=== PATIENT | female | born 1960 | race Caucasian/White ===

== ENCOUNTER 2016-11-09 06:50 | Day surgery (SDC) | payer OTHER, SELFPAY ==
[2016-11-06 11:02] LABS: BASOPHILS 0.2 %; BASOPHILS ABSOLUTE 0.02 10/3/uL (0.0-0.16); EOSINOPHILS 0.9 %; EOSINOPHILS ABSOLUTE 0.08 10/3/uL (0.0-0.53); HEMATOCRIT 39.9 % (36.0-48.0); HEMOGLOBIN 13.8 g/dL (12.0-16.0); IMMATURE GRANULOCYTES 0.2 %; IMMATURE GRANULOCYTES ABSOLUTE 0.02 10/3/uL (0.0-0.11); LYMPHOCYTES 23.6 %; MEAN CORPUS HGB CONC 34.6 g/dL (32.0-36.0); MEAN CORPUSCULAR HEMOGLOB 29.1 pg (26.0-34.0); MEAN PLATELET VOLUME 10.2 fL (9.2-13.0); MONOCYTES 6.8 %; MONOCYTES ABSOLUTE 0.58 10/3/uL (0.21-1.20); NEUTROPHILS 68.3 %; NEUTROPHILS ABSOLUTE 5.77 10/3/uL (2.02-8.40); RBC DISTRIBUTION WIDTH 12.6 % (12.0-16.0); RED CELL COUNT 4.75 10/6/uL (4.0-5.6); WHITE BLOOD CELLS 8.5 10/3/uL (4.5-10.5)
[2016-11-06 11:04] LABS: MANUAL DIFF NO %; PLATELET COUNT 264 10/3/uL (150-400)
[2016-11-06 11:16] LABS: A/G RATIO 1.1 (0.7-1.9); ALBUMIN 3.8 G/DL (3.5-5.0); ALKALINE PHOSPHATASE 111 U/L (45-117); BUN (BLOOD UREA NITROGEN) 8 MG/DL (6-23); CALCIUM, SERUM 9.2 MG/DL (8.5-10.4); CHLORIDE, SERUM 100 MMOL/L (96-112); CO2 (CARBON DIOXIDE) 33 MMOL/L (24-34); CREATININE 0.57 MG/DL (0.55-1.02); GFR AFRICAN AMERICAN 120 ML/MIN (>=60); GFR NON AFRICAN AMERICAN 104 ML/MIN (>=60); GLOBULIN 3.5 G/DL (2.5-4.1); GLUCOSE, SERUM 82 MG/DL (60-99); POTASSIUM, SERUM 4.1 MMOL/L (3.5-5.3); SGOT(AST) 23 U/L (5-40); SGPT(ALT) 25 U/L (5-65); SODIUM, SERUM 139 MMOL/L (135-148); TOTAL BILIRUBIN 0.5 MG/DL (0-1.2); TOTAL PROTEIN 7.3 G/DL (6.0-8.5)
--- NOTE | ~2016-11-09 | OP ---
Record Of Operation [facility] [address] [place]. [address] NAME: JAIRO DE LEON : 60 STATUS : REG [facility] [place] PAT#: [id number] AGE: 56 ADM/REG DATE : 11/09/16 MR#: [id number] REPORT SERV DATE: 11/09/16 DICTATED BY: SAMMY HURLEY JR. DATE: 11/09/16 REPORT STATUS : Draft TRANSCRIBED BY: MODL DATE: 11/09/16 DATE OF PROCEDURE: REASON FOR SURGERY: This 56-year-old patient, presents with an area of in situ malignancy on the depths of the right breast. Stereotactic biopsy had been performed and ultrasound localization of the biopsy site has been performed. The patient has been counseled extensively and now is scheduled for breast preservation in the form of segmentectomy. Postoperative radiotherapy would be standard in her situation at her age, but final pathology will dictate management. PREOPERATIVE DIAGNOSIS: In situ carcinoma, right breast. POSTOPERATIVE DIAGNOSIS: In situ carcinoma, right breast. SURGEON: Sammy Hurley M.D. SURGERY PERFORMED: Preoperative ultrasound localization followed by right breast segmentectomy, with utilization of intraoperative ultrasound localization. PROCEDURE IN DETAIL: The patient was taken to the operating room and under general anesthesia, she was prepped and draped in supine position in usual sterile fashion. A curvilinear incision was made directly over the 9 to 10 o'clock position on the right where the ultrasound localization had been performed. Dissection was carried down through the fatty tissue and into the surface of the breast tissue as this lesions was known to be deep and on the chest wall. A three-dimensional excision was performed, but indurated mass was not felt. It was oriented for pathology. This specimen measured about 3 cm across. Initial sectioning failed to show that findings of the clip or the biopsy site. I took additional disc of tissue measuring 2 x 2 x 1.5 cm at the upper outer quadrant centered at the 10 o'clock position, but extending from 9 to 12. This was sent for permanent section. Intraoperative ultrasound was utilized to attempt to localize the clip and cavity, and this did not help at this time. Along the biopsy site, the clip was located and a three-dimensional excision of this wall from the 4 to 7 o'clock position was performed. It measured 3 x 3 x 1.5 cm. It was oriented for pathology. Biopsy of the actual initial biopsy site was also performed, but with very small amount of subcutaneous tissue. The patient tolerated the procedure well without any complications. The wound was irrigated and hemostasis was obtained. The wound was closed with two layers of Monocryl. The patient tolerated the procedure well without any complications. ESTIMATED BLOOD LOSS: Less than 10 mL. Record Of Operation [address] [place]. [address] NAME: JAIRO DE LEON : 60 STATUS : REG [facility] [place] PAT#: [id number] AGE: 56 ADM/REG DATE : 11/09/16 MR#: [id number] REPORT SERV DATE: 11/09/16 DICTATED BY: SAMMY HURLEY JR. DATE: 11/09/16 REPORT STATUS : Draft TRANSCRIBED BY: TUTU DATE: 11/09/16 SPONGE COUNT: Correct. /TUTU Sammy Hurley Jr., M.D. / [id number] CC: Homer Barrios Jr., M.D. [facility]
[~2016-11-09 06:50] MED LIST: LIPITOR10 PO; MULTIVIT/MIN PO
[2016-12-28] MEDS ORDERED: PAX10 PO (12:17)
[2016-12-28] MEDS ORDERED: OMNICEF300 PO (12:21)
== END 2016-11-09 23:59 | disposition home or self-care (01) ==
LOC: SDC 06:50
PROVIDERS: Surgery Surgical Oncology
PROC: 0HBT3ZX Excision of Right Breast, Percutaneous Approach, Diagnostic (ICD-10-PCS; 2016-11-09)
PROC: 0HBT3ZX Excision of Right Breast, Percutaneous Approach, Diagnostic (ICD-10-PCS; principal; 2016-11-09 08:30)
DX: D05.11 Intraductal carcinoma in situ of right breast (principal); E78.5 Hyperlipidemia, unspecified; Z90.710 Acquired absence of both cervix and uterus; Z98.891 History of uterine scar from previous surgery; Z98.890 Other specified postprocedural states; L30.9 Dermatitis, unspecified; E78.00 Pure hypercholesterolemia, unspecified; Z85.820 Personal history of malignant melanoma of skin; Z79.899 Other long term (current) drug therapy
CPT/HCPCS: 71020; 80053; 85025; 88305; 88307; 88342; 93005; A9270-GY; J0360; J0690; J1885; J2250; J2405; J3010

== ENCOUNTER 2017-01-02 09:29 | Observation (INO) | payer OTHER ==
[2016-12-28 12:56] LABS: BASOPHILS 0.3 %; BASOPHILS ABSOLUTE 0.03 10/3/uL (0.0-0.16); EOSINOPHILS 0.5 %; EOSINOPHILS ABSOLUTE 0.05 10/3/uL (0.0-0.53); HEMATOCRIT 39.5 % (36.0-48.0); HEMOGLOBIN 13.8 g/dL (12.0-16.0); IMMATURE GRANULOCYTES 0.1 %; IMMATURE GRANULOCYTES ABSOLUTE 0.01 10/3/uL (0.0-0.11); LYMPHOCYTES 21.7 %; MEAN CORPUS HGB CONC 34.9 g/dL (32.0-36.0); MEAN CORPUSCULAR HEMOGLOB 30.1 pg (26.0-34.0); MEAN CORPUSCULAR VOLUME 86.2 fL (80-100); MEAN PLATELET VOLUME 9.6 fL (9.2-13.0); MONOCYTES 6.9 %; MONOCYTES ABSOLUTE 0.64 10/3/uL (0.21-1.20); NEUTROPHILS 70.5 %; PLATELET COUNT 291 10/3/uL (150-400); RBC DISTRIBUTION WIDTH 12.3 % (12.0-16.0); RED CELL COUNT 4.58 10/6/uL (4.0-5.6); WHITE BLOOD CELLS 9.2 10/3/uL (4.5-10.5)
[2016-12-28 12:57] LABS: MANUAL DIFF NO %
[2016-12-28 13:03] LABS: INTERNATIONAL NORMAL RATI 1.2 UNITS (-); PARTIAL THROMBO TIME 35.7 SEC (22.5-37.2); PROTIME (NOT ORD) 14.6 SEC (12.0-14.5)
[2016-12-28 13:18] LABS: PFA (COL/EPI) 165 SEC (72-180)
[2016-12-28 13:22] LABS: ALBUMIN 3.9 G/DL (3.5-5.0); BUN (BLOOD UREA NITROGEN) 11 MG/DL (6-23); CALCIUM, SERUM 9.4 MG/DL (8.5-10.4); CHLORIDE, SERUM 101 MMOL/L (96-112); CO2 (CARBON DIOXIDE) 34 MMOL/L (24-34); CREATININE 0.69 MG/DL (0.55-1.02); GFR AFRICAN AMERICAN 113 ML/MIN (>=60); GFR NON AFRICAN AMERICAN 97 ML/MIN (>=60); GLOBULIN 3.9 G/DL (2.5-4.1); GLUCOSE, SERUM 92 MG/DL (60-99); POTASSIUM, SERUM 3.8 MMOL/L (3.5-5.3); SGOT(AST) 19 U/L (5-40); SGPT(ALT) 23 U/L (5-65); SODIUM, SERUM 141 MMOL/L (135-148); TOTAL BILIRUBIN 0.3 MG/DL (0-1.2); TOTAL PROTEIN 7.8 G/DL (6.0-8.5)
[2016-12-28 13:24] LABS: ALKALINE PHOSPHATASE 131 U/L (45-117)
--- NOTE | ~2017-01-02 | OP ---
Record Of Operation [facility] [address] [place]. [address] NAME: JAIRO DE LEON : 60 STATUS : ADM [facility] PAT#: [id number] AGE: 56 ADM/REG DATE : 01/02/17 MR#: [id number] REPORT SERV DATE: 01/03/17 DICTATED BY: SAMMY HURLEY JR. DATE: 01/02/17 REPORT STATUS : Draft TRANSCRIBED BY: MODL DATE: 01/02/17 DATE OF PROCEDURE: 01/02/2017 REASON FOR SURGERY: This 56-year-old patient presented with very small area of calcifications that proved to be in situ carcinoma on core biopsy. Segmentectomy was performed, but the entire field had in situ carcinoma. 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 It is high grade, but unfavorable. [facility], and she and her have gained a good understanding at this time and they have resolved that bilateral mastectomy is indeed appropriate. She is to have immediate reconstruction. Her family history does not show a significant problem for genetic risk, but in her young age with need of right-sided mastectomy, certainly left side mastectomy would be in order and postoperatively, the patient would not then be a candidate for any adjuvant therapy and could indeed consider taking hormone replacement therapy the later date if necessary. PREOPERATIVE DIAGNOSIS: Carcinoma of the right breast. POSTOPERATIVE DIAGNOSIS: Carcinoma of right breast. SURGERY PERFORMED: [place] node localization on the right side followed by bilateral nipple sparing mastectomies and sentinel node biopsy on the right with immediate reconstruction. SURGEON: Dr. Hurley with reconstruction by Dr. Bauman. PROCEDURE: The patient was initially injected in the nuclear medicine facility. She was taken to the operating room and under general anesthesia, she was prepped and draped in supine position in the usual sterile fashion. Both breast mounds were marked. The right breast was approached. The inframammary incision was made and flaps elevated on the anterior surface as well as posteriorly with incorporation of the pectoralis fascia. This was carried in each plane from off the edge of the sternum and off the latissimus laterally. Once the undersurface of the nipple was encountered, this was marked, and eventually, a 10- blade was used to resect a portion of the central ductal system in the immediate tissue underneath this. It was sent for separate permanent section. Dissection was carried down into the infraclavicular fossa. Final dissection was carried along the latissimus into the low axilla. The breast was eventually removed through the low axilla. The specimen was removed and oriented for pathology. The gamma count on the breast itself revealed an active spot just peripheral to the old surgical site and that occupied the upper outer quadrant of the right breast and lateral right breast. It was very active, but I could not find a lymph node. The previous surgical cavity was at this time entered once the breast had been removed, but previously the old large cavity was completely contained within the surgical dissection. I marked the area for active sentinel node but I believe this is only activity in the lymphatic channels. Further use of the gamma probe allowed identification of a single active node in the Record Of Operation [address] [place]. [address] NAME: JAIRO DE LEON : 60 STATUS : ADM [facility] PAT#: [id number] AGE: 56 ADM/REG DATE : 01/02/17 MR#: [id number] REPORT SERV DATE: 01/03/17 DICTATED BY: SAMMY HURLEY JR. DATE: 01/02/17 REPORT STATUS : Draft TRANSCRIBED BY: MODL DATE: 01/02/17 axillary tail in the right. This was removed with a count of over 2000 and background count under 20 indicating appropriate resection of these sentinel node. The wound was irrigated and the hemostasis obtained. Significant bleeding of the axilla acquired some attention, but eventually, control was achieved. The primary specimen was previously oriented for pathology. The wound was irrigated. Hemostasis was obtained. Attention was then turned to the left breast. A similar inframammary incision was made and de-enveloping the breast itself from the underlying skin and underlying muscle was performed. The dissection was carried at each margin including this near sternal margin as well as the latissimus laterally. Final dissection into the low axilla was performed, and this allowed delivery of the specimen which was oriented for pathology. The wound was irrigated and the hemostasis obtained. Additional troublesome bleeding from the left axilla was encountered and eventually controlled. The wound was irrigated and hemostasis obtained. The patient tolerated the procedure well without complications. ESTIMATED BLOOD LOSS: 450 mL. SPONGE COUNT: Correct. Further description of the operation is as per Dr. Bauman. MR/MODL Sammy Hurley Jr., M.D. / [id number] CC: Homer Villatoro PA Joy Nwadike, MD Edward Ostrowski, MD [facility]
--- NOTE | ~2017-01-02 | OP ---
Record Of Operation [facility] [address] [place]. [address] NAME: JAIRO DE LEON : 60 STATUS : DIS [facility] PAT#: [id number] AGE: 56 ADM/REG DATE : 01/02/17 MR#: [id number] REPORT SERV DATE: 01/03/17 DICTATED BY: MELVINA BAUMAN DATE: 01/03/17 REPORT STATUS : Draft TRANSCRIBED BY: TUTU DATE: 01/03/17 DATE OF PROCEDURE: 01/02/2017 PREOPERATIVE DIAGNOSIS: Surgical absence of the breast. POSTOPERATIVE DIAGNOSIS: Surgical absence of the breast. PROCEDURES: Bilateral tissue expansion and acellular dermal matrix reconstruction. INDICATIONS AND FINDINGS OF THE PROCEDURE: This 56-year-old female presents with breast cancer anticipating surgical absence of the breast. She is appropriate for nipple areolar sparing mastectomy reconstruction. DETAILS OF THE PROCEDURE: The patient was brought to the operating room. The patient presents on the operating table after bilateral inframammary crease based areolar sparing mastectomies. First, our attention was turned to the right. The pectoralis muscle was released. An appropriately reconstituted sheet of acellular dermal matrix was then sewn to the cut edge of the pectoralis muscle. A 600 mL tissue block trader was then prepared on the back table and placed behind the muscle AlloDerm construct. Please note that the purpose of the AlloDerm was to recreate the inframammary crease, supplement the soft tissue envelope, and control the position of the tissue block trader. The tissue block trader was tab fixed to the chest wall and filled to 400. She was copiously irrigated with Hibiclens solution, checked for hemostasis at multiple times. She received a pectoralis and serratus block with ropivacaine-Precedex solution, and then she was closed with a progressive tension closure of 3-0 PDS, and 3-0 Monocryl through to an intracuticular in the skin. Our attention was turned contralaterally for an identical procedure. The pectoralis muscle was released, and identical sheet of AlloDerm was placed to an identical purpose, and identical tissue block trader was used to an identical purpose and filled to 400. The Precedex-ropivacaine solution was injected. She was copiously irrigated. Drains were placed, and she was closed in a progressive tension fashion with multiple layers of 3-0 PDS and Monocryl through to an intracuticular in the skin. She was cleansed with peroxide. Nipple areolar complexes were noted to be well-perfused at the end of the case. Nitroglycerin paste dry dressings were placed, and she was remanded to the recovery room in stable condition. SPONGE COUNTS: All sponge and needle counts were correct. BASSAM/TUTU Melvina Bauman M.D. / [id number] CC: Record Of [address] [address] NAME: JAIRO DE LEON : 60 STATUS : DIS [facility] PAT#: [id number] AGE: 56 ADM/REG DATE : 01/02/17 MR#: [id number] REPORT SERV DATE: 01/03/17 DICTATED BY: MELVINA BAUMAN DATE: 01/03/17 REPORT STATUS : Draft TRANSCRIBED BY: TUTU DATE: 01/03/17 Homer Villatoro M.D.
[~2017-01-02 09:29] MED LIST changes: +OMNICEF300 PO; +PAX10 PO
[2017-01-03] MEDS ORDERED: AT25 PO (08:49)
[2017-01-03] MEDS ORDERED: PERCOCET 7.5/321 TAB PO (08:50)
[2017-01-03] MEDS ORDERED: K500 PO (08:50)
== END 2017-01-03 12:15 | disposition home or self-care (01) ==
LOC: SDC 09:29 → SDC/OF 19:47 → 4EA 20:14
PROVIDERS: Surgery Surgery of the Hand; Surgery Surgical Oncology
PROC: 07B50ZX Excision of Right Axillary Lymphatic, Open Approach, Diagnostic (ICD-10-PCS; 2017-01-02)
PROC: 0HHV0NZ Insertion of Tissue Expander into Bilateral Breast, Open Approach (ICD-10-PCS; principal; 2017-01-02 13:15)
PROC: 0HTV0ZZ Resection of Bilateral Breast, Open Approach (ICD-10-PCS; 2017-01-02 13:15)
DX: D05.11 Intraductal carcinoma in situ of right breast (principal); E78.00 Pure hypercholesterolemia, unspecified; Z90.710 Acquired absence of both cervix and uterus
CPT/HCPCS: 78195; 80053; 85025; 85576; 85610; 85730; 88305; 88307; 88342; 93005; 96374; 96375; 96376; A9270-GY; A9541; C1769; C1789; G0378; J0690; J1170; J1885; J2250; J2270; J2405; J2710; J2795; J3010; P9045; Q4116; Q9968